=== PATIENT | male | born 1980 | race Caucasian/White ===

== ENCOUNTER → 2024-01-23 16:23 | Outpatient (REF) | payer OTHER, SELFPAY | LOC: RCS 16:23 | PROVIDERS: ATTENDING PHYSICIAN Nurse Practitioner Family; FAMILY PHYSICIAN Internal Medicine | DX: R07.89 Other chest pain (principal); R07.9 Chest pain, unspecified; E78.2 Mixed hyperlipidemia | CPT/HCPCS: 93005 ==

== ENCOUNTER → 2024-02-15 07:36 | Outpatient (REF) | payer OTHER, SELFPAY | LOC: RCS 07:36 | PROVIDERS: ATTENDING PHYSICIAN Nurse Practitioner Family | DX: R07.89 Other chest pain (principal) | CPT/HCPCS: 93017 ==

== ENCOUNTER → 2024-02-16 07:47 | Outpatient (REF) | payer OTHER, SELFPAY | LOC: REG 07:47 | PROVIDERS: ATTENDING PHYSICIAN Nurse Practitioner Family | DX: R07.89 Other chest pain (principal); E78.2 Mixed hyperlipidemia | CPT/HCPCS: 36415; 75571 ==